=== PATIENT | male | born 1970 | race Caucasian/White ===

== ENCOUNTER → 2018-10-10 08:43 | Outpatient (CLI) | payer OTHER ==
[2018-10-10 10:33] LABS: BASOPHILS 0.2 % (0-2); EOSINOPHILS 1.7 % (0-7); HEMATOCRIT 41.2 % (42.0-54.0); HEMOGLOBIN 13.8 g/dL (13.5-17.5); IMMATURE GRANULOCYTES 0.3 % (0-5); LYMPHOCYTES 38.3 % (15-50); MCH 29.2 pg (26.0-34.0); MCHC 33.5 g/dL (31.0-37.0); MCV 87.1 fL (80.0-100.0); MEAN PLATELET VOLUME 9.3 fL (7.4-10.4); MONOCYTES 10.7 % (2-11); NEUTROPHILS 48.8 % (40-80); PLATELET COUNT 220 10x3/uL (130-400); RBC 4.73 10x6/uL (4.20-6.10); RDW 13.8 % (11.5-14.5); WBC 5.8 10x3/uL (4.8-10.8)
[2018-10-13 13:12] LABS: IMMUNOGLOBULIN E 33 IU/mL (0-100)
== END | disposition home or self-care (01) ==
LOC: D.RT 08:43
PROVIDERS: Internal Medicine Pulmonary Disease
DX: J45.909 Unspecified asthma, uncomplicated (principal)

== ENCOUNTER → 2019-02-17 09:01 | Outpatient (CLI) | payer OTHER | END | disposition home or self-care (01) | LOC: D.CT 09:01 | PROVIDERS: ATTEND Internal Medicine Pulmonary Disease | DX: J40 Bronchitis, not specified as acute or chronic (principal) ==

== ENCOUNTER → 2019-09-16 13:40 | Outpatient (CLI) | payer OTHER ==
[2019-09-17 11:10] LABS: IMMUNOGLOBULIN A 229 mg/dL (90-386); IMMUNOGLOBULIN G 1357 mg/dL (700-1600)
[2019-09-18 06:09] LABS: IGG SUBCLASS 1 774 mg/dL (248-810); IGG SUBCLASS 2 341 mg/dL (130-555); IGG SUBCLASS 3 90 mg/dL (15-102); IGG SUBCLASS 4 35 mg/dL (2-96); IGGS - IGG SERUM 1341 mg/dL (700-1600)
== END | disposition home or self-care (01) ==
LOC: D.RAD 08-18 09:00
PROVIDERS: ATTEND Internal Medicine Pulmonary Disease
DX: J45.909 Unspecified asthma, uncomplicated (principal)